=== PATIENT | male | born 1960 | race Caucasian/White ===

== ENCOUNTER 2017-08-12 00:18 | Day surgery (SDC) | payer OTHER ==
[~2017-08-12 00:18] MED LIST: ALBU90OI61 INH; FLUSAL2505 INH; NAPR220 PO; OMEP20ER PO; PROLASTIN C1 MG IV; Percocet 5-3251 EACH PO; Pravachol80 MG PO; Prinivil10 MG PO; [UNRECOGNIZED DRUG - REMARK]
== END 2017-08-12 10:22 | disposition home or self-care (01) ==
LOC: ATC 00:18
DX: E88.01 Alpha-1-antitrypsin deficiency (principal); J44.9 Chronic obstructive pulmonary disease, unspecified; Z87.891 Personal history of nicotine dependence
CPT/HCPCS: 96365; J0256

== ENCOUNTER 2017-08-22 00:27 | Day surgery (SDC) | payer OTHER | END 2017-08-22 15:11 | disposition home or self-care (01) | LOC: ATC 00:27 | DX: E88.01 Alpha-1-antitrypsin deficiency (principal); J44.9 Chronic obstructive pulmonary disease, unspecified | CPT/HCPCS: 96365; J0256 ==

== ENCOUNTER 2017-08-26 00:50 | Day surgery (SDC) | payer OTHER | END 2017-08-26 10:12 | disposition home or self-care (01) | LOC: ATC 00:50 | DX: E88.01 Alpha-1-antitrypsin deficiency (principal); J44.9 Chronic obstructive pulmonary disease, unspecified; J93.83 Other pneumothorax | CPT/HCPCS: 96365; J0256 ==

== ENCOUNTER 2017-09-02 00:07 | Day surgery (SDC) | payer OTHER | END 2017-09-02 10:30 | disposition home or self-care (01) | LOC: ATC 00:07 | DX: E88.01 Alpha-1-antitrypsin deficiency (principal); J44.9 Chronic obstructive pulmonary disease, unspecified; Z87.891 Personal history of nicotine dependence | CPT/HCPCS: 96365; J0256 ==

== ENCOUNTER 2017-09-09 00:14 | Day surgery (SDC) | payer OTHER | END 2017-09-09 10:08 | disposition home or self-care (01) | LOC: ATC 00:14 | DX: E88.01 Alpha-1-antitrypsin deficiency (principal); J44.9 Chronic obstructive pulmonary disease, unspecified; J93.83 Other pneumothorax | CPT/HCPCS: 96365; J0256 ==

== ENCOUNTER 2017-09-18 00:58 | Day surgery (SDC) | payer OTHER ==
[2017-09-18] MEDS ORDERED: Vitamin B Comple1 EA PO (09:12)
== END 2017-09-18 11:02 ==
LOC: ATC 00:58
DX: E88.01 Alpha-1-antitrypsin deficiency (principal); J44.9 Chronic obstructive pulmonary disease, unspecified; J93.83 Other pneumothorax
CPT/HCPCS: 96365; J0256

== ENCOUNTER 2017-09-23 00:54 | Day surgery (SDC) | payer OTHER ==
[~2017-09-23 00:54] MED LIST changes: +Vitamin B Comple1 EA PO
[2017-09-23] MEDS ORDERED: Probenecid-Col1 EACH PO (09:04)
== END 2017-09-23 10:16 | disposition home or self-care (01) ==
LOC: ATC 00:54
DX: E88.01 Alpha-1-antitrypsin deficiency (principal); J44.9 Chronic obstructive pulmonary disease, unspecified; J93.83 Other pneumothorax
CPT/HCPCS: 96365; J0256

== ENCOUNTER 2017-09-30 00:31 | Day surgery (SDC) | payer OTHER ==
[~2017-09-30 00:31] MED LIST changes: +Probenecid-Col1 EACH PO
== END 2017-09-30 10:00 | disposition home or self-care (01) ==
LOC: ATC 00:31
DX: E88.01 Alpha-1-antitrypsin deficiency (principal); J44.9 Chronic obstructive pulmonary disease, unspecified; J93.83 Other pneumothorax; Z87.891 Personal history of nicotine dependence
CPT/HCPCS: 96365; J0256

== ENCOUNTER 2017-10-07 00:09 | Day surgery (SDC) | payer OTHER | END 2017-10-07 10:08 | disposition home or self-care (01) | LOC: ATC 00:09 | DX: E88.01 Alpha-1-antitrypsin deficiency (principal); J44.9 Chronic obstructive pulmonary disease, unspecified; J93.83 Other pneumothorax | CPT/HCPCS: 96365; J0256 ==

== ENCOUNTER 2017-10-15 00:15 | Day surgery (SDC) | payer OTHER | END 2017-10-15 10:10 | disposition home or self-care (01) | LOC: ATC 00:15 | DX: E88.01 Alpha-1-antitrypsin deficiency (principal); J44.9 Chronic obstructive pulmonary disease, unspecified; J93.83 Other pneumothorax | CPT/HCPCS: 96365; J0256 ==

== ENCOUNTER 2017-10-21 00:14 | Day surgery (SDC) | payer OTHER | END 2017-10-21 10:27 | disposition home or self-care (01) | LOC: ATC 00:14 | DX: E88.01 Alpha-1-antitrypsin deficiency (principal); J44.9 Chronic obstructive pulmonary disease, unspecified; J93.83 Other pneumothorax | CPT/HCPCS: 96365; J0256 ==

== ENCOUNTER 2017-10-28 00:47 | Day surgery (SDC) | payer OTHER | END 2017-10-28 17:06 | disposition home or self-care (01) | LOC: ATC 00:47 | DX: E88.01 Alpha-1-antitrypsin deficiency (principal); J44.9 Chronic obstructive pulmonary disease, unspecified | CPT/HCPCS: 96365; J0256 ==

== ENCOUNTER 2017-11-04 00:30 | Day surgery (SDC) | payer OTHER | END 2017-11-04 10:43 | disposition home or self-care (01) | LOC: ATC 00:30 | DX: E88.01 Alpha-1-antitrypsin deficiency (principal); J44.9 Chronic obstructive pulmonary disease, unspecified; J93.83 Other pneumothorax | CPT/HCPCS: 96365; J0256 ==

== ENCOUNTER 2017-11-12 00:21 | Day surgery (SDC) | payer OTHER | END 2017-11-12 10:25 | disposition home or self-care (01) | LOC: ATC 00:21 | DX: E88.01 Alpha-1-antitrypsin deficiency (principal); J44.9 Chronic obstructive pulmonary disease, unspecified; J93.83 Other pneumothorax | CPT/HCPCS: 96365; J0256 ==

== ENCOUNTER 2018-12-23 07:11 | Day surgery (SDC) | payer OTHER ==
[~2018-12-23] VITALS: Ht 179 cm; Wt 119.3 kg
[2018-12-23] MEDS ORDERED: BUDE6HFA INH (08:05)
--- NOTE | 2018-12-23 10:31 | NUR ---
Patient up to Ambulate independently. Gait steady. Discharge instructions reviewed with patient. Patient verbalizes understanding. Copy given to patient to take home. Patient States Post-Procedure ride home has been arranged. Discharged via wheelchair to private car for ride home.
== END 2018-12-23 22:41 | disposition home or self-care (01) ==
LOC: ORSCMMR 07:11
PROVIDERS: Internal Medicine Gastroenterology
PROC: 0DBN8ZX Excision of Sigmoid Colon, Via Natural or Artificial Opening Endoscopic, Diagnostic (ICD-10-PCS; principal; 2018-12-23 10:30)
DX: K62.5 Hemorrhage of anus and rectum (principal); K63.5 Polyp of colon; K57.30 Diverticulosis of large intestine without perforation or abscess without bleeding; E03.9 Hypothyroidism, unspecified; J44.9 Chronic obstructive pulmonary disease, unspecified; I10 Essential (primary) hypertension; E66.01 Morbid (severe) obesity due to excess calories; Z68.37 Body mass index [BMI] 37.0-37.9, adult; E88.01 Alpha-1-antitrypsin deficiency; K21.9 Gastro-esophageal reflux disease without esophagitis; G47.30 Sleep apnea, unspecified; Z79.899 Other long term (current) drug therapy
CPT/HCPCS: 88305; J2250; J2704; J7120

== ENCOUNTER → 2023-06-03 | Outpatient (CLI) | payer OTHER ==
[~2023-06-03] MED LIST changes: +BUDE6HFA INH
[2023-06-03 20:03] LABS: Anion Gap 4 mmol/L (6-16); Blood Urea Nitrogen 27 mg/dL (8-24); Bun/Creatinine Ratio 21.8 (12.0-20.0); CHOL/HDL RATIO 5.9; CO2, Blood 29 mmol/L (21-32); Calcium, Blood 9.5 mg/dL (8.5-10.1); Chloride, Blood 107 mmol/L (98-108); Cholesterol 199 mg/dL (50-200); Creatinine, Blood 1.24 mg/dL (0.60-1.20); Glomerular Filtration Rate 66 (60-); Glucose, Blood 114 mg/dL (70-99); HDL Cholesterol 34 mg/dL (>39); LDL/HDL RATIO Unable to Calculate; Low Density Lipoprotein Chol Unable to Calculate mg/dL (0-110); Potassium, Blood 4.1 mmol/L (3.5-5.5); Sodium, Blood 140 mmol/L (136-145); Triglycerides 936 mg/dL (30-160); Very Low Density Lipoprot Chol Unable to Calculate mg/dL (6-32)
[2023-06-03 20:32] LABS: LDL Direct Measurement 104 mg/dL (0-130)
== END | disposition home or self-care (01) ==
LOC: LAB SHORT 16:21 → LAB 16:21
PROVIDERS: Nurse Practitioner Family
DX: E87.5 Hyperkalemia (principal)
CPT/HCPCS: 80048; 80061; 83721

== ENCOUNTER → 2024-11-16 | Outpatient (CLI) | payer OTHER | LOC: LAB SHORT 14:32 → LAB 14:32 | DX: R39.9 Unspecified symptoms and signs involving the genitourinary system (principal) | CPT/HCPCS: 87086 ==

== ENCOUNTER 2025-01-10 16:35 | Inpatient (IN) | payer OTHER ==
[~2025-01-10] VITALS: Ht 180.3 cm; Wt 129.3 kg
[2025-01-10] MEDS ORDERED: ALBU90OI INH (16:48)
[2025-01-10] MEDS ORDERED: BREYNA 160-4.10.3 GM INH (16:48)
[2025-01-10] MEDS ORDERED: LIPITOR80 MG PO (16:49)
[2025-01-10] MEDS ORDERED: NEURONTIN300 MG PO (16:49)
[2025-01-10] MEDS ORDERED: TOPI50 PO (16:49)
[2025-01-10] MEDS ORDERED: MOBIC15 MG PO (16:49)
[2025-01-10] MEDS ORDERED: CATAPRES0.1 MG PO (16:49)
[2025-01-10] MEDS ORDERED: SYNTHROID75 MCG PO (16:50)
[2025-01-10] MEDS ORDERED: Ondansetron HCl 2 MG / ML 2ML Vial IV ONE (17:00)
[2025-01-10] MEDS ORDERED: NS 1,000 ML IV ONE (17:06)
[2025-01-10] MEDS ORDERED: Pantoprazole Sodium 40 MG Injection IV ONE (17:20)
[2025-01-10 17:28] LABS: BASOPHILS ABSOLUTE AUTO 0.04 K/mm3 (0.00-0.23); BASOPHILS PERCENT AUTO 0 % (0-2); EOSINOPHILS ABSOLUTE AUTO 0.11 K/mm3 (0.00-0.68); EOSINOPHILS PERCENT AUTO 1 % (0-6); Hematocrit 36.8 % (37.0-53.0); Hemoglobin 12.3 g/dL (13.5-17.5); IMMATURE GRAN ABSOLUTE AUTO 0.03 K/mm3 (0.00-0.10); IMMATURE GRAN PERCENT AUTO 0 % (0-1); LYMPHOCYTES ABSOLUTE AUTO 1.76 K/mm3 (0.84-5.20); LYMPHOCYTES PERCENT AUTO 16 % (21-46); MONOCYTES ABSOLUTE AUTO 0.66 K/mm3 (0.16-1.47); MONOCYTES PERCENT AUTO 6 % (4-13); Mean Corpuscular HGB 32.4 pg (26.0-34.0); Mean Corpuscular HGB Conc 33.4 g/dL (31.5-36.5); Mean Corpuscular Volume 97 fL (80-100); Mean Platelet Volume 9.8 fL (9.1-12.4); NEUTROPHILS ABSOLUTE AUTO 8.54 K/mm3 (1.96-9.15); NEUTROPHILS PERCENT AUTO 77 % (41-73); Platelet Count 333 K/mm3 (150-400); RDW Coefficient Variation 12.7 % (11.7-14.2); RDW Standard Deviation 44.9 fL (35.1-46.3); White Blood Cell Count 11.14 K/mm3 (4.00-11.30)
[2025-01-10 17:35] LABS: International Normalized Ratio 1.08; Prothrombin Time Results 11.8 Sec (9.7-11.5)
[2025-01-10 17:38] LABS: Albumin, Blood 4.2 g/dL (3.4-5.0); Albumin/Globulin Ratio 1.8 (0.8-1.8); Bilirubin, Total 0.3 mg/dL (0.1-1.0); Bun/Creatinine Ratio 31.8 (12.0-20.0); Calcium, Blood 9.2 mg/dL (8.5-10.1); Creatinine, Blood 1.54 mg/dL (0.60-1.20); Globulin, Blood 2.4 g/dL (2.2-4.0); Potassium, Blood 4.5 mmol/L (3.5-5.5); Total Protein, Blood 6.6 g/dL (6.4-8.2)
[2025-01-10 20:34] LABS: Hematocrit 35.7 % (37.0-53.0); Hemoglobin 11.7 g/dL (13.5-17.5)
[2025-01-10] MEDS ORDERED: Lactated Ringer's 1,000 ML IV ONE ×2 (21:50→23:00)
[2025-01-10] MEDS ORDERED: Ondansetron HCl 2 MG / ML 2ML Vial IV PRN (22:35)
[2025-01-10] MEDS ORDERED: Acetaminophen 325 MG TABLET PO PRN (22:35)
[2025-01-10] MEDS ORDERED: Pantoprazole Sodium 40 MG in NS 50 ML IV SCH (22:40)
[2025-01-10] MEDS ORDERED: Synthroid200 MCG PO (23:32)
[2025-01-10] MEDS ORDERED: FENO54 PO (23:34)
--- NOTE | 2025-01-10 23:47 | NUR ---
REVIEWED INFORMATION TO HELP WITH CURRENT ADMISSION
[2025-01-11] VITALS (7 sets, daily range): BP systolic 139–191; BP diastolic 88–108
[2025-01-11 01:24] LABS: Hematocrit 31.8 % (37.0-53.0); Hemoglobin 10.5 g/dL (13.5-17.5)
[2025-01-11] MEDS ORDERED: Mometasone/Formoterol MDI 200/5 mcg 13 GM INH SCH (01:40)
[2025-01-11] MEDS ORDERED: Albuterol HFA200 ACT/6.7 GM INH INH PRN (01:40)
[2025-01-11] MEDS ORDERED: CloNIDine 0.1 MG Tab PO ONE (03:00)
[2025-01-11 04:55] LABS: BASOPHILS ABSOLUTE AUTO 0.03 K/mm3 (0.00-0.23); BASOPHILS PERCENT AUTO 0 % (0-2); EOSINOPHILS ABSOLUTE AUTO 0.06 K/mm3 (0.00-0.68); EOSINOPHILS PERCENT AUTO 1 % (0-6); Hematocrit 30.9 % (37.0-53.0); IMMATURE GRAN ABSOLUTE AUTO 0.02 K/mm3 (0.00-0.10); IMMATURE GRAN PERCENT AUTO 0 % (0-1); LYMPHOCYTES ABSOLUTE AUTO 1.75 K/mm3 (0.84-5.20); LYMPHOCYTES PERCENT AUTO 24 % (21-46); MONOCYTES ABSOLUTE AUTO 0.45 K/mm3 (0.16-1.47); MONOCYTES PERCENT AUTO 6 % (4-13); Mean Corpuscular HGB 32.3 pg (26.0-34.0); Mean Corpuscular HGB Conc 32.4 g/dL (31.5-36.5); Mean Corpuscular Volume 100 fL (80-100); Mean Platelet Volume 9.5 fL (9.1-12.4); NEUTROPHILS ABSOLUTE AUTO 5.07 K/mm3 (1.96-9.15); NEUTROPHILS PERCENT AUTO 69 % (41-73); Platelet Count 250 K/mm3 (150-400); RDW Standard Deviation 46.7 fL (35.1-46.3); White Blood Cell Count 7.38 K/mm3 (4.00-11.30)
--- NOTE | 2025-01-11 05:19 | NUR ---
ADMITTED FROM ED TO RM 362, A&O X4, SBP FROM 140-150 BUT ON 175 WHEN CHECKED HE FORGOT TO TAKE BP MEDS IN MORNING, BUT ASYMPTOMATIC, STILL HAS STREAKS OF DARK RED (MAROON) BLOOD ON STOOL AFTER BM IN THE FLOWER. HOOKED TELE W/ SINUS TACH READING. NOTICEABLE FAST RESPIRATIONS AND EASY FATIGUABILITY W/C IS NORMAL TO HIM PER PT. ADMIN CATAPRES ONCE DOSE ORDERED. H&H CHECKED NORMALLY FINE IN AM. ABLE TO SLEEP WELL AFTER FURTHER MGT. MAINTAINED NPO AND AWARE. PLAN FOR POSS SCOPE TO ASSESS ULCER. NO EDEMA / SKIN ISSUES NOTED.
[2025-01-11 05:27] LABS: Albumin, Blood 3.6 g/dL (3.4-5.0); Albumin/Globulin Ratio 1.6 (0.8-1.8); Bilirubin, Total 0.2 mg/dL (0.1-1.0); Calcium, Blood 8.2 mg/dL (8.5-10.1); Creatinine, Blood 1.38 mg/dL (0.60-1.20); Globulin, Blood 2.3 g/dL (2.2-4.0); Magnesium, Blood 2.2 mg/dL (1.6-2.4); Total Protein, Blood 5.9 g/dL (6.4-8.2)
[2025-01-11] MEDS ORDERED: Levothyroxine Sodium 0.075 MG Tab PO SCH (06:00)
[2025-01-11] MEDS ORDERED: Levothyroxine Sodium 0.1 MG Tab PO SCH (06:00)
[2025-01-11] MEDS ORDERED: NS 1,000 ML IV SCH (08:00)
[2025-01-11] MEDS ORDERED: Atorvastatin 40 MG Tab PO SCH (09:00)
[2025-01-11] MEDS ORDERED: Fenofibrate, Micronized 134 MG Capsule PO SCH (09:00)
[2025-01-11] MEDS ORDERED: CloNIDine 0.1 MG Tab PO SCH (09:00)
[2025-01-11 18:01] LABS: Hematocrit 29.8 % (37.0-53.0); Hemoglobin 9.5 g/dL (13.5-17.5)
--- NOTE | 2025-01-11 18:09 | NUR ---
PT REMIANED NPO FOR GI CONSULT FOR POSSIBLE PROCEDURE TODAY. PT HAD NO C/O PAIN
[2025-01-11] MEDS ORDERED: Topiramate 100 MG Tab PO SCH (21:00)
[2025-01-11] MEDS ORDERED: Gabapentin 300 MG Cap PO SCH (21:00)
[2025-01-12] VITALS (9 sets, daily range): BP systolic 125–170; BP diastolic 69–107
--- NOTE | 2025-01-12 04:02 | NUR ---
SHIFT SUMMARY PATIENT HAD NO ACUTE CHANGES. ALERT ORIENTED AND INDEPENDENT IN ROOM. NPO. CBG Q6 CHECK 94. DENIES CHEST PAIN, SOB, AND N/V. AFEBRILE. PIV INTACT. CALL LIGHT IN REACH. BED IN LOWEST POSITION. WILL CONTINUE TO MONITOR UNTIL DAY SHIFT NURSE ASSUMES CARE.
[2025-01-12 05:04] LABS: BASOPHILS ABSOLUTE AUTO 0.02 K/mm3 (0.00-0.23); BASOPHILS PERCENT AUTO 0 % (0-2); EOSINOPHILS ABSOLUTE AUTO 0.12 K/mm3 (0.00-0.68); EOSINOPHILS PERCENT AUTO 2 % (0-6); Hematocrit 27.5 % (37.0-53.0); Hemoglobin 8.8 g/dL (13.5-17.5); IMMATURE GRAN ABSOLUTE AUTO 0.01 K/mm3 (0.00-0.10); IMMATURE GRAN PERCENT AUTO 0 % (0-1); LYMPHOCYTES ABSOLUTE AUTO 1.64 K/mm3 (0.84-5.20); LYMPHOCYTES PERCENT AUTO 27 % (21-46); MONOCYTES ABSOLUTE AUTO 0.36 K/mm3 (0.16-1.47); MONOCYTES PERCENT AUTO 6 % (4-13); Mean Corpuscular Volume 100 fL (80-100); Mean Platelet Volume 9.5 fL (9.1-12.4); NEUTROPHILS ABSOLUTE AUTO 4.03 K/mm3 (1.96-9.15); NEUTROPHILS PERCENT AUTO 65 % (41-73); Platelet Count 224 K/mm3 (150-400); RDW Coefficient Variation 13.2 % (11.7-14.2); RDW Standard Deviation 47.8 fL (35.1-46.3); Red Blood Cell Count 2.75 M/mm3 (4.30-5.90); White Blood Cell Count 6.18 K/mm3 (4.00-11.30)
[2025-01-12 05:30] LABS: Albumin, Blood 3.6 g/dL (3.4-5.0); Albumin/Globulin Ratio 1.7 (0.8-1.8); Bilirubin, Total 0.3 mg/dL (0.1-1.0); Bun/Creatinine Ratio 28.2 (12.0-20.0); Calcium, Blood 8.2 mg/dL (8.5-10.1); Creatinine, Blood 1.24 mg/dL (0.60-1.20); Globulin, Blood 2.1 g/dL (2.2-4.0); Potassium, Blood 3.8 mmol/L (3.5-5.5); Total Protein, Blood 5.7 g/dL (6.4-8.2)
[2025-01-12] MEDS ORDERED: Lactated Ringer's 1,000 ML IV SCH ×2 (07:30→15:40)
[2025-01-12 13:04] LABS: Hematocrit 27.8 % (37.0-53.0)
--- NOTE | 2025-01-12 15:45 | NUR ---
INTO SDS VIA WHEELCHAIR. HISTORY AND ALLERGIES REVIEWED. LUNGS TIGHT WITH EXP WZ NOTED ON EXERTION. SATS>90% ON RA. DR. ERICKSON AWARE. NPO STATUS CONFIRMED. BP 170/107-MD AND ANESTHESIA AWARE.
[2025-01-12] MEDS ORDERED: propofoL 50 ML IV ONE (16:01)
--- NOTE | 2025-01-12 16:07 | NUR ---
#20 PIV TO BILATERAL AC C/D/I.
--- NOTE | 2025-01-12 16:18 | NUR ---
01/12/25 1618 Umm Sprague 1611- History, Chart, Medications and Allergies reviewed before start of procedure.MONITOR INTACT WITH CONTINUOUS PULSE OXIMETRY, CONTINUOUS END TITAL CO2, 3-LEAD EKG AND INTERMITTENT BLOOD PRESSURE.3-LEAD EKG REVIEWED WITH PHYSICIAN PRIOR TO START OF PROCEDURE.O2 VIA POM INTACT THROUGHOUT SEDATION/PROCEDURE.Bite Block Placed.DR. ERICKSON PROVIDING MAC-SEE ANESTHESIA RECORD.
--- NOTE | 2025-01-12 18:33 | NUR ---
SHIFT SUMMARY PT A&OX4, VSS, AMB IND, TOLERATING PO, VOIDING, AND DENIED PAIN. PT HAD SCOPE THIS SHIFT. LR INFUSED AND PROTONIX DRIP INFUSING PER ORDER, OK TO D/C AFTER LAST BAG COMPLETE PER . NO OTHER ACUTE CHANGES. CALL LIGHT WITHIN REACH AND PT ABLE TO MAKE NEEDS KNONW.
[2025-01-13 04:06] VITALS: BP 121/70
--- NOTE | 2025-01-13 05:51 | NUR ---
SHIFT SUMMARY PT SLEPT INTERMITTENTLY DURING THE NIGHT. PT WITH 2 SMALL MAROON STOOLS DURING THE EVENING. PT DENIES FEELING LIGHTHEADED OR DIZZY. UP INDEPENDENTLY IN ROOM. BED IN LOWEST POSITION, CALL LIGHT WITHIN REACH, SIDERAILS UP X2.
[2025-01-13 06:11] LABS: BASOPHILS ABSOLUTE AUTO 0.03 K/mm3 (0.00-0.23); BASOPHILS PERCENT AUTO 1 % (0-2); EOSINOPHILS ABSOLUTE AUTO 0.17 K/mm3 (0.00-0.68); EOSINOPHILS PERCENT AUTO 3 % (0-6); Hematocrit 25.7 % (37.0-53.0); Hemoglobin 8.2 g/dL (13.5-17.5); IMMATURE GRAN ABSOLUTE AUTO 0.03 K/mm3 (0.00-0.10); IMMATURE GRAN PERCENT AUTO 1 % (0-1); LYMPHOCYTES ABSOLUTE AUTO 1.45 K/mm3 (0.84-5.20); LYMPHOCYTES PERCENT AUTO 24 % (21-46); MONOCYTES PERCENT AUTO 7 % (4-13); Mean Corpuscular HGB 32.3 pg (26.0-34.0); Mean Corpuscular HGB Conc 31.9 g/dL (31.5-36.5); Mean Corpuscular Volume 101 fL (80-100); Mean Platelet Volume 9.9 fL (9.1-12.4); NEUTROPHILS ABSOLUTE AUTO 4.03 K/mm3 (1.96-9.15); NEUTROPHILS PERCENT AUTO 66 % (41-73); Platelet Count 248 K/mm3 (150-400); RDW Coefficient Variation 13.2 % (11.7-14.2); Red Blood Cell Count 2.54 M/mm3 (4.30-5.90); White Blood Cell Count 6.11 K/mm3 (4.00-11.30)
[2025-01-13 06:39] LABS: Albumin, Blood 3.7 g/dL (3.4-5.0); Albumin/Globulin Ratio 1.7 (0.8-1.8); Bilirubin, Total 0.3 mg/dL (0.1-1.0); Bun/Creatinine Ratio 27.9 (12.0-20.0); Calcium, Blood 8.9 mg/dL (8.5-10.1); Creatinine, Blood 1.22 mg/dL (0.60-1.20); Globulin, Blood 2.2 g/dL (2.2-4.0); Potassium, Blood 3.6 mmol/L (3.5-5.5); Total Protein, Blood 5.9 g/dL (6.4-8.2)
[2025-01-13 08:16] VITALS: BP 150/82
[2025-01-13] MEDS ORDERED: Acetaminophen325 M1 PO (12:19)
[2025-01-13] MEDS ORDERED: PANT40 PO (12:20)
--- NOTE | 2025-01-13 13:06 | NUR ---
DISCHARGE NOTE PT D/C HOME AT 1245. PT PROVIDED W/ VERBAL AND WRITTEN INSTRUCTIONS AND REPORTED UNDERSTANDING. PT A&OX4, VSS, AMB IND, TOLERATING PO, VOIDING, AND DENIED PAIN. BELONGINGS WERE RETURNED AND PT ESCOURTED OUT BY HIS FAMILY AT 1300.
== END 2025-01-13 13:02 | disposition home or self-care (01) | DRG 379 ==
LOC: ER 16:35 → MEDS 16:36 → ENPENDDIS 01-13 12:43 → MEDS 01-13 13:02
PROVIDERS: Emergency Medicine; Family Medicine; Internal Medicine; Registered Nurse; Student in an Organized Health Care Education/Training Program; Surgery; ADMIT Student in an Organized Health Care Education/Training Program
PROC: 0DB78ZX Excision of Stomach, Pylorus, Via Natural or Artificial Opening Endoscopic, Diagnostic (ICD-10-PCS; principal; 2025-01-12 16:00)
DX: K29.81 Duodenitis with bleeding (principal); E78.5 Hyperlipidemia, unspecified; M19.90 Unspecified osteoarthritis, unspecified site; J44.9 Chronic obstructive pulmonary disease, unspecified; E03.9 Hypothyroidism, unspecified; E66.9 Obesity, unspecified; K21.9 Gastro-esophageal reflux disease without esophagitis; D50.0 Iron deficiency anemia secondary to blood loss (chronic); I12.9 Hypertensive chronic kidney disease with stage 1 through stage 4 chronic kidney disease, or unspecified chronic kidney disease; D63.1 Anemia in chronic kidney disease; N18.2 Chronic kidney disease, stage 2 (mild); E88.01 Alpha-1-antitrypsin deficiency; K44.9 Diaphragmatic hernia without obstruction or gangrene; M54.9 Dorsalgia, unspecified; G89.29 Other chronic pain; T39.395A Adverse effect of other nonsteroidal anti-inflammatory drugs [NSAID], initial encounter; G47.33 Obstructive sleep apnea (adult) (pediatric); K42.9 Umbilical hernia without obstruction or gangrene; Z90.2 Acquired absence of lung [part of]; Z87.891 Personal history of nicotine dependence; Z79.899 Other long term (current) drug therapy; Z79.890 Hormone replacement therapy; Z68.39 Body mass index [BMI] 39.0-39.9, adult
CPT/HCPCS: 36415; 80053; 82947; 83690; 83735; 84443; 84484; 85014; 85018; 85025; 85610; 85730; 86850; 86900; 86901; 88305; 88342; 93005; 93010; 94640; 94664; 94760; 94762; 96361; 96374; 96375; 96376; 99285-25; A9270; G0378; J2405; J2470; J2704; J7030; J7120

== ENCOUNTER 2025-06-15 11:32 | Emergency (ER) | payer OTHER ==
[~2025-06-15] VITALS: Ht 182.9 cm; Wt 120.7 kg
[~2025-06-15 11:32] MED LIST changes: +ALBU90OI INH; +Acetaminophen325 M1 PO; +BREYNA 160-4.10.3 GM INH; +CATAPRES0.1 MG PO; +FENO54 PO; +LIPITOR80 MG PO; +MOBIC15 MG PO; +NEURONTIN300 MG PO; +PANT40 PO; +SYNTHROID75 MCG PO; +Synthroid200 MCG PO; +TOPI50 PO
[2025-06-15] MEDS ORDERED: HYDROCODONE-AC1 EA10 PO (15:22)
[2025-06-15] MEDS ORDERED: CEPH500 PO (15:22)
[2025-06-15 16:02] VITALS: BP 148/81
== END 2025-06-15 16:03 | disposition home or self-care (01) ==
LOC: ER 11:32
DX: L03.012 Cellulitis of left finger (principal); Z79.899 Other long term (current) drug therapy; Z87.891 Personal history of nicotine dependence
CPT/HCPCS: 26011; 99283-25

== ENCOUNTER 2025-06-20 09:52 | Emergency (ER) | payer OTHER ==
[~2025-06-20] VITALS: Ht 180.3 cm; Wt 119.8 kg
[~2025-06-20 09:52] MED LIST changes: +CEPH500 PO; +HYDROCODONE-AC1 EA10 PO
[2025-06-20 10:11] VITALS: BP 126/91
== END 2025-06-20 11:37 | disposition home or self-care (01) ==
LOC: ER 09:52
DX: Z48.817 Encounter for surgical aftercare following surgery on the skin and subcutaneous tissue (principal); K21.9 Gastro-esophageal reflux disease without esophagitis; Z87.891 Personal history of nicotine dependence
CPT/HCPCS: 99282